=== PATIENT | female | born 1955 | race Caucasian/White ===

== ENCOUNTER 2016-10-03 11:07 | Day surgery (SDC) | payer OTHER ==
--- NOTE | 2016-10-02 11:29 | HP ---
Adela Calvert DATE OF SURGERY: 10/03/2016 PREOPERATIVE DIAGNOSIS: Postmenopausal bleeding. OPERATION PLANNED: Hysteroscopy dilation and curettage. HISTORY OF PRESENT ILLNESS: The patient is a 60-year-old 4, para 4 woman with an last menstrual period at age 50. She states that since March she has been bleeding almost daily. Two weeks ago she had a lot of cramping associated with bleeding like a period and passing clots. She had an ultrasound done which showed a possible fibroid and an endometrial stripe of 10 mm. PAST MEDICAL HISTORY: Medical: Has a history of a deep venous thrombosis. PAST SURGICAL HISTORY: Cholecystectomy. ALLERGIES: VICODIN CAUSING A RASH. FAMILY HISTORY: Positive for her mother with breast cancer and cervical cancer. SOCIAL HISTORY: Patient is Swedish speaking and does not smoke and does not use alcohol. REVIEW OF SYSTEMS: Patient denies any fever, chills, constipation, diarrhea, nausea, vomiting. PHYSICAL EXAMINATION: GENERAL: She is a healthy appearing woman. VITAL SIGNS: Blood pressure is 130/74 and afebrile. HEENT: Normal. LUNGS: Clear. HEART: Normal S1 and S2. ABDOMEN: Soft, nontender. PELVIC: Deferred to the operating room because of poor mobility in the patient. CURRENT MEDICATIONS: She is on: Xarelto 20 mg every day in the evening. IMPRESSION: A patient with postmenopausal bleeding. PLAN: To do a hysteroscopy dilation and curettage. JOB: [id number]
[~2016-10-03 11:07] MED LIST: IV START KIT ONE; LACTATED RINGERS 1,000 ML ONE
[2016-10-03] MEDS ORDERED: FENTANYL 100 MCG/2 ML VIAL ONE (12:22)
[2016-10-03] MEDS ORDERED: MIDAZOLAM HCL 1 MG/ML 2ML VIAL ONE (12:22)
[2016-10-03] MEDS ORDERED: PROPOFOL 20 ML IV ONE ×3 (12:34→12:55)
[2016-10-03] MEDS ORDERED: ONDANSETRON 4 MG/2ML 2 ML VIAL ONE (12:34)
[2016-10-03] MEDS ORDERED: OXYCODONE/ACETAMINOPHEN 5/325 MG TABLET PO PRN (13:13)
[2016-10-03] MEDS ORDERED: ONDANSETRON 4 MG/2ML 2 ML VIAL IV PRN (13:13)
[2016-10-03] MEDS ORDERED: MORPHINE SULFATE 2 MG/ML SYRINGE IV PRN (13:13)
--- NOTE | 2016-10-03 13:19 | OP ---
Adela Neshanic DATE OF SURGERY: 10/03/2016 PREOPERATIVE DIAGNOSIS: Postmenopausal bleeding. POSTOPERATIVE DIAGNOSIS: Postmenopausal bleeding. OPERATION PERFORMED: Hysteroscopy dilation and curettage. PROCEDURE: The patient was taken to the operating room where intravenous sedation was given. She was placed in the dorsolithotomy position and prepped and draped in the usual sterile fashion. Bimanual exam showed normal external genitalia. She has a large rectocele in her vagina. Cervix was normal. Uterus was about 8 week size, mid position. Adnexa nontender, no masses. A speculum was then inserted and the cervix was grasped with a tenaculum. The uterus sounded to 10 cm. The cervix was progressively dilated to a size 9 Romel dilator. A hysteroscope was inserted which showed a number of white colored vascular polyps otherwise, the endometrium was atrophic. Hysteroscope was removed. A sharp curette was used to curettage the uterine cavity producing tissue and polyps. Hemostasis was good. Hysteroscope was reinserted and polyps have been removed. At that point, hemostasis was good and all instruments were removed. The patient tolerated the procedure well and was taken to the recovery room in stable condition. All sponge, instrument, and needle counts were correct. Estimated blood loss minimal. JOB: [id number]
[2016-10-03] MEDS ORDERED: OXYCODONE/ACETAMINOPHEN 5/325 MG TABLET ONE (13:36)
--- NOTE | 2016-10-05 11:37 | SURGPATH ---
[facility] [address] [place] [id number] Patient Name: ANAT FELIPE MR#: [id number] : 1955 Gender: F Specimen #: [id number] Collected: 10/03/2016 Received: 10/04/2016 Reported: 10/05/2016 Submitting Phys: WEI ALLRED Copy To Phys: CARLINE PINZON [facility] Clinical History / Pre-Operative Diagnosis: POSTMENOPAUSAL BLEEDING Specimen Source / Surgical Procedure Performed: ENDOMETRIAL CURETTINGS HIGH PRIORITY DIAGNOSIS. REQUIRES CLINICAL ATTENTION Interpretation: ENDOMETRIUM, CURETTINGS: - ENDOMETRIOID ADENOCARCINOMA, FIGO GRADE 2 Electronically Signed Out Denver Molina M.D. Gross Description: The specimen is received in a formalin filled container labeled with the patient's name and "endometrial curettings". An aggregate of mckenzie tissue admixed with hemorrhagic material 3.0 x 2.5 x 1 cm. Totally embedded in cassettes A and B. Barrie Victor Microscopic Description: Levels contain blood and multiple fragments of diffusely abnormal endometrial tissue that has features of endometrioid carcinoma. The tumor grows as glandular and solid collections with areas of squamous metaplasia. In some areas the intervening stroma is spindly. High-grade cytologic atypia is not seen. Pathologists reviewed this case at the daily conference and agree with this interpretation. Rare fragments of benign polypoid endometrial tissue are also present. 1: [id number] C54.1
== END 2016-10-03 14:18 | disposition home or self-care (01) ==
LOC: SDC 11:07
PROVIDERS: ATTEND Obstetrics & Gynecology
PROC: 0UDB8ZX Extraction of Endometrium, Via Natural or Artificial Opening Endoscopic, Diagnostic (ICD-10-PCS; principal; 2016-10-03)
DX: C54.1 Malignant neoplasm of endometrium (principal); Z86.718 Personal history of other venous thrombosis and embolism; Z88.5 Allergy status to narcotic agent; Z80.3 Family history of malignant neoplasm of breast; Z80.49 Family history of malignant neoplasm of other genital organs
CPT/HCPCS: 58558; J3010; A9270; J2250; J2405; J7120